=== PATIENT | female | born 1935 | race Caucasian/White ===

== ENCOUNTER 2016-07-02 09:25 | Emergency (ER) | payer OTHER ==
[2016-07-02] MEDS ORDERED: ASPIRIN PO STA (09:51)
[2016-07-02] MEDS ORDERED: PHENERGAN IV ONE (10:01)
[2016-07-02] MEDS ORDERED: SODIUM CHLORIDE 0.9% INJ ONE (10:01)
[2016-07-02] MEDS ORDERED: REGLAN IV ONE (10:01)
--- NOTE | 2016-07-02 10:08 | PROVIDER DOCUMENTATION ---
HPI-Syncope/Dizziness - General Chief Complaint: Near Syncope Stated Complaint: N/V/PAIN IN LFT ARM Time Seen by Provider: 07/02/16 09:44 Source: patient Allergies/Adverse Reactions: Patient Allergies Allergy/AdvReac Type Severity Reaction Status Date / Time metaxalone [From Skelaxin] Allergy Severe ANAPHYLACTI Verified 01/01/16 15:16 C codeine [Codeine] Allergy Intermediate NAUSEA AND Verified 01/01/16 15:16 VOMITING hydromorphone HCl * Allergy Intermediate NAUSEA Verified 01/01/16 15:16 [From Dilaudid] buprenorphine HCl * Allergy Unknown Verified 07/02/16 10:07 [From Buprenex] ondansetron HCl * Allergy Unknown Verified 07/02/16 10:07 [From Zofran] Home Medications: Aspirin 325 mg PO HS 08/06/15 Atorvastatin Calcium [Lipitor] 40 mg PO QHS 08/06/15 Bupropion S.r. [Wellbutrin Sr] 100 mg PO DAILY 08/06/15 Calcitriol [Rocaltrol] 0.25 mcg PO DIRECTED 08/06/15 Cholecalciferol (Vitamin D3) [Vitamin D-3] 1,000 unit PO DAILY 08/06/15 Esomeprazole [Nexium] 40 mg PO DAILY 08/06/15 Lamotrigine [Lamictal] 100 mg PO BID 08/06/15 Metoprolol Succinate 25 mg PO DAILY 08/06/15 [place]-3 Acid Ethyl Esters [Lovaza] 2 gm PO BID 08/06/15 Paroxetine HCl [Paxil] 40 mg PO DAILY 08/06/15 Phenytoin Sodium Extended [Dilantin] 400 mg PO 4XDAY 08/06/15 Donepezil [Aricept] 10 mg PO DAILY 07/02/16 Doxycycline 100 mg PO BID 07/02/16 Fenofibrate Nanocrystallized [Tricor] 145 mg PO DAILY 07/02/16 - History of Present Illness-Syncope/Dizzy Nature of Presenting Problem: patient is a 80 y/o F that presents to the ER after having near syncopal episode this am while using restroom. patient reports having a cold for past few days as well as left arm pain. patient during episode had some nausea\\ vomiting and diaphoresis. Denies chest pain, shortness of breath, or palpitations Prior Episodes: reports: single episode today Onset/Duration: reports: abrupt, this morning Timing: reports: gone now Position/Activity at time of episode: reports: activity Symptoms prior to episode: reports: lightheaded, nausea/vomiting Context: reports: almost passed out Loss of Consciousness: no loss of consciousness Location of injury. (If syncope resulted in an injury.): reports: none Current Symptoms: reports: none/feels normal Recently Seen Here or By Another Healthcare Provider: No Review of Systems - Adult - REVIEW OF SYSTEMS - ADULT Constitutional: denies: chills, fever Eyes: reports: no symptoms reported Ears, Nose, Mouth & Throat: reports: no symptoms reported Cardiovascular: reports: syncope (near). denies: chest pain, palpitations Respiratory: denies: cough, shortness of breath Gastrointestinal: reports: nausea, vomiting. denies: abdominal pain, diarrhea Genitourinary: reports: no symptoms reported Musculoskeletal: reports: bone pain. denies: joint pain, neck pain Integumentary: reports: no symptoms reported Neurological: reports: dizziness/vertigo, syncope (near) Psychiatric: reports: no symptoms reported Endocrine: reports: no symptoms reported Hematologic/Lymphatic: reports: no symptoms reported Allergic/Immunologic: reports: no symptoms reported All Other Systems: Reviewed and Negative Past History - Adult - PAST MEDICAL HISTORY-ADULT Review of Records: reports: Old Records Reviewed, Nursing Assessment Review, Medications Reviewed Cardiovascular: reports: CAD, HTN, MA Obstetrical/Gynecological: reports: other (breast ca) Neurological: reports: Seizures/Epilepsy - PRIOR SURGERIES/PROCEDURES Surgical/Procedure History: reports: CABG (Apr 2015), cholecystectomy, cardiac stent, hysterectomy - IMMUNIZATION STATUS Childhood Immunizations: See Nurse Assessment Flu Vaccine: See Nurse Assessment - SOCIAL HISTORY Smoking: non-smoker Living Situation: family Physical Exam-General - PHYSICAL EXAM-ADULT Initial Vital Signs Reviewed: Yes - CONSTITUTIONAL General Appearance: alert, no apparent distress - EYES Eyes: PERRL/EOMI, pink conjunctivae - HEAD, EARS, NOSE, MOUTH & THROAT HENMT: normocephalic/atraumatic, moist mucous membranes, normal ENT inspection - NECK Neck: non-tender, full range of motion, normal inspection - RESPIRATORY Respiratory: lungs clear, normal breath sounds, no respiratory distress, no accessory muscle use - CARDIOVASCULAR Cardiovascular: normal peripheral pulses, regular rate, rhythm, no edema, no JVD , no murmur - GASTROINTESTINAL (ABDOMEN) Abdominal Exam: normal bowel sounds, non tender, soft, no organomegaly, no pulsatile mass - MUSCULOSKELETAL Back Exam: normal inspection, no vertebral tenderness Extremity: normal range of motion, normal inspection, no pedal edema - SKIN Integumentary: normal color, warm/dry - NEUROLOGIC Neurologic: grossly normal, no motor/sensory deficits - PSYCHIATRIC Psych/Mental Status: normal mood/affect, normal thought content, normal thought process, oriented x 3 Progress - PLAN OF CARE/RESULTS Progress/Plan/Lab Results: plan of care-cardiac work up Vital Signs Temp Pulse Resp BP Pulse Ox 07/02/16 09:35 97.5 F L 66 16 168/72 97 metaxalone [From Skelaxin] Allergy (Severe, Verified 01/01/16 15:16) ANAPHYLACTIC codeine [Codeine] Allergy (Intermediate, Verified 01/01/16 15:16) NAUSEA AND VOMITING hydromorphone HCl * [From Dilaudid] Allergy (Intermediate, Verified 01/01/16 15: 16) NAUSEA "MAKES ME SICK" buprenorphine HCl * [From Buprenex] Allergy (Verified 07/02/16 10:07) Unknown patient reports "it causes cramps and makes me almost pass out." ondansetron HCl * [From Zofran] Allergy (Verified 07/02/16 10:07) Unknown Patient reports cramps and "makes me almost pass out." Aspirin 325 mg PO HS 08/06/15 Atorvastatin Calcium [Lipitor] 40 mg PO QHS 08/06/15 Bupropion S.r. [Wellbutrin Sr] 100 mg PO DAILY 08/06/15 Calcitriol [Rocaltrol] 0.25 mcg PO DIRECTED 08/06/15 Cholecalciferol (Vitamin D3) [Vitamin D-3] 1,000 unit PO DAILY 08/06/15 Esomeprazole [Nexium] 40 mg PO DAILY 08/06/15 Lamotrigine [Lamictal] 100 mg PO BID 08/06/15 Metoprolol Succinate 25 mg PO DAILY 08/06/15 [place]-3 Acid Ethyl Esters [Lovaza] 2 gm PO BID 08/06/15 Paroxetine HCl [Paxil] 40 mg PO DAILY 08/06/15 Phenytoin Sodium Extended [Dilantin] 400 mg PO 4XDAY 08/06/15 Donepezil [Aricept] 10 mg PO DAILY 07/02/16 Doxycycline 100 mg PO BID 07/02/16 Fenofibrate Nanocrystallized [Tricor] 145 mg PO DAILY 07/02/16 Laboratory 07/02/16 07/02/16 07/02/16 10:00 10:00 10:00 WBC 5.22 RBC 4.02 L Hgb 13.2 Hct 37.5 MCV 93.3 MCH 32.8 H MCHC 35.2 RDW Std Deviation 12.5 Plt Count 172 MPV 10.3 Immature Gran % (Auto) 0.4 Neut % (Auto) 52.1 Lymph % (Auto) 33.5 Reynolds % (Auto) 9.4 H Eos % (Auto) 4.4 Baso % (Auto) 0.2 Immature Gran # (Auto) 0.02 Neut # (Auto) 2.72 Lymph # (Auto) 1.75 Reynolds # (Auto) 0.49 Eos # (Auto) 0.23 Baso # (Auto) 0.01 PT 11.1 INR 1.05 PTT (Actin FS) 22.5 Sodium 139 Potassium 4.0 Chloride 101 Carbon Dioxide 23 L Anion Gap 15 BUN 26 H Creatinine 0.8 Estimated GFR/1.73 m2 > 60 BUN/Creatinine Ratio 33 Glucose 112 H Calculated Osmolality 283 Calcium 11.0 H Magnesium 1.4 L Total Bilirubin 0.32 AST 20 ALT 16 Alkaline Phosphatase 81 Creatine Kinase 57 Total Protein 7.4 Albumin 4.1 Globulin 3.3 Albumin/Globulin Ratio 1.2 Orders Category Date Time Status Cardiac Monitoring DIRECTED Care 07/02/16 09:51 Active Saline Loc NOW Care 07/02/16 09:51 Active CHEST-PORTABLE [RAD] Stat Exams 07/02/16 09:52 Draft CBC WITH ELECTRONIC DIFF [HEME] Stat Lab 07/02/16 10:00 Completed CK PROFILE [SP CHEM] Stat Lab 07/02/16 10:00 Completed COMPREHENSIVE METABOLIC PANEL [CHEM] Stat Lab 07/02/16 10:00 Completed MAGNESIUM [CHEM] Stat Lab 07/02/16 10:00 Completed PRO B-NATRIURETIC PEPTIDE Stat Lab 07/02/16 10:00 Received PROTIME WITH INR [COAG] Stat Lab 07/02/16 10:00 Completed PTT [COAG] Stat Lab 07/02/16 10:00 Completed TROPONIN T Stat Lab 07/02/16 10:00 Received Aspirin Med 07/02/16 09:51 Discontinued 325 mg PO STAT STA Metoclopramide [Reglan] Med 07/02/16 10:01 Discontinued 5 mg IV NOW ONE Promethazine [Phenergan] Med 07/02/16 10:01 Discontinued 12.5 mg IV NOW ONE Sodium Chloride 0.9% Med 07/02/16 10:01 Discontinued 10 ml INJ NOW ONE EKG [EKG] Stat Ther 07/02/16 09:28 Ordered EKG [EKG] Stat Ther 07/02/16 09:51 Ordered patient will be d/c home f/u with pcp, rx given, pt was clinically stable and understood instructions - EKG 1 Time of EKG reading by physician:: 09:40 EKG Read and Signed by:: Martha Martines EKG Interpretation (*Must complete 3 of following elements*): Abnormal Rate: 66 Rhythm: Sinus rhythm with PACs [place]: normal QRS: normal ST Wave: non-specific ST changes - XRAY 1 XRAY Study: Chest Impression: Abnormal XRAY Interpretation: stable chest, heart upper limits of nml Departure - Departure Time of Disposition Order: 11:03 DIAGNOSIS: Near syncope Nausea & vomiting Qualifiers: Vomiting type: unspecified Vomiting Intractability: non-intractable Qualified Code(s): R11.2 - Nausea with vomiting, unspecified Disposition: HOME 01 Certified Medical Emergency: Emergent Condition: Stable Additional Instructions: follow up with ED Follow Up Instructions: You have been treated by a care provider in the Emergency Department. These instructions are being provided to you so you can have an understanding of how to care for yourself upon discharge. Upon discharge from the Emergency Department, you are responsible for making arrangements for follow-up care by a physician of your choice. Take all prescribed medications as directed. Return to the Emergency Department immediately for any new or worsening symptoms. You may call the Physician Referral phone number at [phone] to obtain a list of Physicians who are taking new patients. Referrals: Ethan Salinas MD [Primary Care Provider] - Call for Appoint. 1-2days Instructions: Near-Syncope, [id number], Nausea, Adult, Nausea and Vomiting Attestation - Scribe Verification/Attestation Scribe:: Moncho Chin Acting as Scribe for:: Martha Martines Scribe documention review:: This chart was documented by a scribe and accurately reflects the service the provider performed and the decisions made by the provider. Physician Attestation - Physician Attestation I, the provider, attest to the following statement:: Martha Martines Physician documentation Attestation:: This documentation recorded by the scribe accurately reflects the service I personally performed and the decisions made by me.
[2016-07-02 10:16] LABS: MANUAL DIFF NEEDED? NO
[2016-07-02 10:20] LABS: BASO% 0.2 % (0.0-0.8); EOS# 0.23 X1000 (0.0-0.7); EOS% 4.4 % (0.0-10.0); HEMATOCRIT 37.5 % (37.0-47.0); HEMOGLOBIN 13.2 g/dL (12.0-16.0); IMM GRAN# 0.02 X1000 (0.0-0.04); IMM GRAN% 0.4 % (0.0-0.5); LYMPH# 1.75 X1000 (1.2-3.4); LYMPH% 33.5 % (20.5-51.1); MCH 32.8 PG (27-31); MCHC 35.2 g/dL (33-37); MCV 93.3 FL (81-99); MONO# 0.49 X1000 (0.11-0.59); MONO% 9.4 % (1.7-9.3); MPV 10.3 FL (7.4-10.4); NEUT% 52.1 % (42.2-75.2); PLT 172 X1000 (130-400); RBC 4.02 XMIL (4.2-5.4)
[2016-07-02 10:30] LABS: INR 1.05; PROTIME 11.1 Seconds (9.2-11.7); PTT 22.5 Seconds (22.0-36.0)
[2016-07-02 10:49] LABS: AGAP 15; ALBUMIN 4.1 g/dL (3.5-5.0); ALKALINE PHOSPHATASE 81 U/L (32-104); BUN 26 mg/dL (8-22); CHLORIDE 101 mmol/L (98-107); CK PROFILE 57 U/L (24-173); COSMO 283; GOT 20 U/L (10-30); GPT 16 U/L (10-36); MAGNESIUM 1.4 mg/dL (1.5-2.7); SODIUM 139 mmol/L (136-145); TCO2 23 mmol/L (25-35); TOTAL BILIRUBIN 0.32 mg/dL (0.20-1.00); TOTAL PROTEIN 7.4 g/dL (6.3-8.3)
--- NOTE | 2016-07-02 10:58 | Diag Imaging Result Document ---
PROCEDURE NAME: CHEST-PORTABLE - 07/02/2016 PORTABLE CHEST: FINDINGS: The heart size is at the upper limits of normal. It appears larger than on 08/06/2015; however, this is probably due to AP projection. Otherwise, there has been no significant change. IMPRESSION: Stable chest.
[2016-07-02 11:18] VITALS: BP 146/76
--- NOTE | 2016-07-02 11:39 | EKG Report ---
Test Performed on : 07/02/2016 09:34:22 AM Test Reason : left arm pain, hx of CABG Blood Pressure : / mmHG Vent. Rate : 066 BPM Atrial Rate : 066 BPM P-R Int : 200 ms QRS Dur : 094 ms QT Int : 390 ms P-R-T Axes : 071 029 084 degrees QTc Int : 408 ms Sinus rhythm. with premature atrial complexes. Cannot rule out Anterior infarct (cited on or before 02-JUL-2016) Abnormal ECG When compared with ECG of 02-JUL-2016 09:33, (Unconfirmed) QRS axis shifted left Unconfirmed Result
== END 2016-07-02 11:34 | disposition home or self-care (01) ==
LOC: ED 09:25
DX: R55 Syncope and collapse (principal); R11.2 Nausea with vomiting, unspecified; R42 Dizziness and giddiness; I25.10 Atherosclerotic heart disease of native coronary artery without angina pectoris; I10 Essential (primary) hypertension; R94.31 Abnormal electrocardiogram [ECG] [EKG]; I25.2 Old myocardial infarction; Z79.899 Other long term (current) drug therapy; Z85.3 Personal history of malignant neoplasm of breast; M89.8X9 Other specified disorders of bone, unspecified site; R56.9 Unspecified convulsions; Z95.1 Presence of aortocoronary bypass graft; Z95.5 Presence of coronary angioplasty implant and graft; Z79.82 Long term (current) use of aspirin
CPT/HCPCS: 71010; 80053; 82550; 83735; 83880; 84484; 85025; 85610; 85730; 93005; 96374; 96375; J2550; J2765

== ENCOUNTER 2017-01-10 13:26 | Inpatient (IN) ==
[2017-01-10] MEDS ORDERED: ZITHROMAX PO ONE (14:45)
--- NOTE | 2017-01-10 15:09 | Diag Imaging Result Doc PS360 ---
EXAM: CHEST-2 VIEWS HISTORY: Acute Bronchitis TECHNIQUE: PA and lateral chest COMMENT: There is cardiomegaly. There is prominence of the pulmonary vascularity bilaterally and there is a pleural effusion in the right costophrenic sulcus which was not present on 07/02/2016. There is questionable interstitial edema. IMPRESSION: Increased pulmonary vascularity and questionable pulmonary edema. Small right pleural effusion. Electronically signed by Olman Martinez 01/10/2017 3:07 PM
[2017-01-10] MEDS: ROCEPHIN 1 GM/NS 1 GM/50 ML IVPB IV SCH (15:16)
[2017-01-10 15:20] LABS: MANUAL DIFF NEEDED? NO
[2017-01-10 15:21] LABS: BASO% 0.3 % (0.0-0.8); EOS% 2.5 % (0.0-10.0); HEMATOCRIT 37.2 % (37.0-47.0); HEMOGLOBIN 12.9 g/dL (12.0-16.0); IMM GRAN# 0.02 X1000 (0.0-0.04); IMM GRAN% 0.3 % (0.0-0.5); LYMPH# 1.88 X1000 (1.2-3.4); LYMPH% 23.6 % (20.5-51.1); MCH 33.1 PG (27-31); MCHC 34.7 g/dL (33-37); MCV 95.4 FL (81-99); MONO# 0.77 X1000 (0.11-0.59); MONO% 9.7 % (1.7-9.3); MPV 10.6 FL (7.4-10.4); NEUT% 63.6 % (42.2-75.2); PLT 185 X1000 (130-400)
[2017-01-10] MEDS ORDERED: PHENERGAN PO PRN (15:44)
[2017-01-10 15:53] LABS: AGAP 13; ALBUMIN 4.3 g/dL (3.5-5.0); ALKALINE PHOSPHATASE 82 U/L (32-104); BUN 27 mg/dL (8-22); CALCIUM 10.5 mg/dL (8.8-10.2); CHLORIDE 101 mmol/L (98-107); COSMO 282; GOT 33 U/L (10-30); GPT 26 U/L (10-36); POTASSIUM 4.2 mmol/L (3.5-5.1); SODIUM 139 mmol/L (136-145); TCO2 25 mmol/L (25-35); TOTAL BILIRUBIN 0.57 mg/dL (0.20-1.00); TOTAL PROTEIN 7.5 g/dL (6.3-8.3)
[2017-01-10 16:06] LABS: URINE SOURCE CLEAN CATCH
[2017-01-10 16:10] LABS: BILIRUBIN URINE NEGATIVE (NEGATIVE); BLOOD URINE SMALL (NEGATIVE); COLOR YELLOW; GLUCOSE URINE NEGATIVE (NEGATIVE); LEUKOCYTES URINE SMALL (NEGATIVE); NITRITE URINE NEGATIVE (NEGATIVE); PROTEIN URINE TRACE mg/dL (NEGATIVE); SP GRAVITY URINE 1.023; TURBIDITY URINE HAZY (CLEAR); UROBILINOGEN URINE 3 mg/dL (NORMAL)
[2017-01-10 16:12] LABS: URINE MICRO REVIEW NEEDED? YES
[2017-01-10 16:13] LABS: UR EPITHELIAL CELLS <10 /HPF (<10); URINE BACTERIA 2+ /HPF; URINE CULTURE NEEDED? YES; URINE RBC 20-40 /HPF (<10); URINE WBC <10 /HPF (<10)
[2017-01-10 16:25] LABS: BLOOD TYPE ARTERIAL; DRAW SITE R RADIAL; METHB 0.5 % (0.0-1.5); O2(CT) 18.5 mL/dL (15.0-23.0); PCO2(98.6) 38 mmHg (35-45); PO2(98.6) 68 mmHg (60-100); SAMPLE BLOOD; SAO2 95.1 % (95.0-100.0); THB 14.1 g/dL (11.5-17.4); pH(98.6) 7.43 (7.35-7.45)
[2017-01-10] MEDS ORDERED: LOPRESSOR PO ONE (16:26)
[2017-01-10 16:27] LABS: ALLEN TEST YES; MODALITY ROOM AIR
[2017-01-10] MEDS ORDERED: LASIX IV ONE (19:18)
[2017-01-10] MEDS: LIPITOR PO SCH (20:20)
[2017-01-10] MEDS: LOVAZA PO SCH (20:20)
[2017-01-10] MEDS: SYMBICORT 160/4.5 MICROGM INHALER INH SCH (20:23)
[2017-01-11] MEDS: PRILOSEC PO SCH (06:27)
--- NOTE | 2017-01-11 07:02 | EKG Report ---
Test Performed on : 01/10/2017 3:56:06 PM Test Reason : Acute Bronchitis Blood Pressure : / mmHG Vent. Rate : 117 BPM Atrial Rate : 234 BPM P-R Int : 000 ms QRS Dur : 094 ms QT Int : 320 ms P-R-T Axes : 000 057 097 degrees QTc Int : 446 ms Atrial flutter. with variable AV block. Anterior infarct (cited on or before 02-JUL-2016) Abnormal ECG When compared with ECG of 02-JUL-2016 09:34, Atrial flutter. has replaced Sinus rhythm. Vent. rate has increased BY [address] no longer elevated in Inferior leads T wave inversion no longer evident in Lateral leads Confirmed by Deborah Shelton MD ([id number]) on 01/11/2017 1:09:48 PM
[2017-01-11] MEDS: ROBITUSSIN-DM PO PRN (08:03)
[2017-01-11] MEDS: TRICOR PO SCH (08:30)
[2017-01-11] MEDS: WELLBUTRIN SR PO SCH (08:30)
[2017-01-11] MEDS: LOVAZA PO SCH ×2 (08:30→21:16)
[2017-01-11] MEDS: ASPIRIN PO SCH (08:30)
[2017-01-11] MEDS: PAXIL PO SCH (08:31)
[2017-01-11] MEDS: ZITHROMAX PO SCH (08:31)
[2017-01-11] MEDS: VITAMIN D PO SCH (08:31)
[2017-01-11] MEDS: LAMICTAL PO SCH (08:31)
[2017-01-11] MEDS ORDERED: TOPROL XL PO SCH (09:00)
--- NOTE | 2017-01-11 11:53 | HISTORY AND PHYSICAL ---
CHIEF COMPLAINT: Shortness of breath and cough. HISTORY OF PRESENT ILLNESS: A 81-year-old female patient complaining of chest congestion, cough, scanty sputum production, wheezing, shortness of breath. The patient was sick for a few days. I evaluated patient 2 days ago, started her on antibiotics, steroid. Patient was taking medication. She was not feeling any better. The patient was getting sicker, more cough, more shortness of breath. The patient came back for evaluation. I evaluated the patient and decided to admit her for further care as patient was not responding to outpatient treatment. The patient did have some low-grade fever, chills, she was not able to rest well. She had soreness when she coughed. She denied any hemoptysis. The patient claims she coughed significantly until she threw up once. The patient had some runny nose, stuffy nose, postnasal drip. Complaining of symptoms of stress urinary incontinence. No dysuria or hematuria. Vague abdominal pain. No diarrhea, blood or mucus in the stool. The patient was feeling weak, tired and no energy. At times, pain in the lower back. No focal numbness, tingling, weakness. No further history available at this time. ALLERGIES: Metolazone, trazodone, codeine, hydromorphone. PAST MEDICAL HISTORY: Significant for hyperlipidemia, situational depression, seizure disorder, hypertension, gastritis, reflux disease, situational depression, osteoarthritis, hypercalcemia. PERSONAL HISTORY: Single. Lives at home. Fairly independent in activities of daily living. The patient does have problem with recent memory. FAMILY HISTORY: Significant for sister with breast cancer, hypertension. REVIEW OF SYSTEMS: As per HPI. PHYSICAL EXAMINATION: GENERAL: Elderly white female patient in mild distress. VITAL SIGNS: On admission blood pressure 154/106, pulse 120, respiration 22, temperature 98.2 degrees. SKIN: Senile turgor. No rash or petechiae. HEENT: Head atraumatic, normocephalic. [place] conjunctivae. Anicteric sclerae. Extraocular muscle movement normal. Fundus, sharp discs. Ears and nose benign. NECK: Supple. No JVD, thyromegaly or lymphadenopathy. CHEST: Bilateral good air entry present. Bibasilar crepitation. Occasional wheezing. CARDIOVASCULAR: S1 and S2 heard. No gallop or thrill. ABDOMEN: Soft, globular, bowel sounds present. Mild epigastric tenderness. No guarding or rigidity. EXTREMITIES: No cyanosis, clubbing. No acute DVT. BIOLOGY INTERN: Alert, awake, able to move all 4 limbs. LABORATORY DATA: WBC count 7.95, hemoglobin 12.9, hematocrit 37.2, platelet count 185,000. Blood gas, pH 7.43, pCO2 38, PO2 was 68. O2 saturation was 95.1. This was done on room air. Electrolytes: Calcium 10.5, ProBNP was 2887. Urinalysis: 2+ bacteria. DIAGNOSTICS: Chest x-ray did reveal possible pulmonary edema and pulmonary vascular congestion. EKG results reviewed. CONSIDERATION: 1. Acute asthmatic bronchitis, not responding to outpatient treatment. 2. Pulmonary vascular congestion and pulmonary edema. 3. The patient does have seizure disorder, hypertension, gastritis and reflux disease, osteoarthritis, depression, mild cognitive impairment. PLAN: Admit the patient. IV antibiotics. Oxygen. Telemetry monitoring. I will give her some Lasix. Her EKG reviewed. We will get a Cardiology consult. I am going to get echocardiogram. Fall precaution. Overall plan discussed with the patient. She is in agreement. cc: Ethan Salinas MD
[2017-01-11] MEDS ORDERED: LOVENOX SUBQ SCH (12:30)
[2017-01-11] MEDS: LASIX IV SCH (12:35)
--- NOTE | 2017-01-11 12:49 | CONSULTATION ---
DATE OF CONSULTATION: 01/11/2017 HISTORY OF PRESENT ILLNESS: This 81-year-old lady with known coronary artery disease, status post coronary artery bypass grafting, hypertension, sleep apnea, and seizure disorder in the past, comes with complaints of increasing episodes of shortness of breath associated with cough for the last 3 weeks. Initially, symptoms started as shortness of breath, which progressively worsened. This was dyspnea on exertion and started having cough, as well. She describes the cough as a dry cough initially, with subsequently mucoid expectoration associated with chest pain on coughing. Her shortness of breath worsened significantly with the worsening of cough, and she came in and she was admitted. She denies chest pain suggestive of angina; however, with coughing, she has had significant left-sided chest discomfort. She does not perceive any palpitations. There is no history of fevers or chills. REVIEW OF SYSTEMS: A 14-point review of systems was done.Gastrointestinal: There is no history of nausea, vomiting, diarrhea. There is no history of hematemesis or melena. Central nervous system: No focal weakness to suggest a CVA or TIA. Genitourinary: There is no dysuria or hematuria. Respiratory: As above. Endocrine: Stable. PAST MEDICAL HISTORY: 1. Coronary artery disease, status post coronary artery bypass grafting on 05/17/2015 with saphenous vein graft to OM, saphenous vein graft to ramus, MERAZ to left anterior descending artery. Prior to that, on 05/04/2004, she had PTCA and bare metal stent to left anterior descending artery. In April 2009, she had a drug-eluting stent to distal left anterior descending artery. In 2010, she had a drug-eluting stent to the proximal circumflex artery, PTCA to distal LAD stent. At that time, ejection fraction was 45% to 50%. On 12/12/2012, she had a cardiac catheterization which revealed patent stent. Subsequently, on 05/10/2015, she had again a cardiac catheterization resulting in recommendation for and undergoing coronary artery bypass grafting. 2. Bilateral carotid disease. Minimal. 3. Hypertension. 4. Hyperlipidemia. 5. Sleep apnea. 6. Carcinoma in situ of breast, status post lumpectomy and radiation in the past. 7. Seizure disorder. 8. Gastroesophageal reflux disease. ALLERGIES: She is allergic to metaxalone, codeine, hydromorphone, buprenorphine. HOME MEDICATIONS: Aspirin 325 mg. Atorvastatin 40. She is on Zithromax currently and Symbicort. She has also been started on ceftriaxone. Her other home medications include fenofibrate 145 mg a day, lamotrigine 400 mg daily, she has been started on metoprolol, omeprazole, Paxil, and takes Lovaza. SOCIAL HISTORY: She does not smoke. Does not drink. There is no history of alcohol abuse. PHYSICAL EXAMINATION: Vital Signs: Blood pressure was 128/84. Cardiovascular: Normal jugular venous pressure. First and second heart sounds were heard. There was no S3 gallop. There was faint murmur. Respiratory: Bilateral expiratory wheeze. Abdomen: Soft, nontender. There was no guarding or rigidity. Bowel sounds were heard. Central nervous system: Alert and oriented x3. Was moving all 4 extremities. Extremities: Examination of extremities revealed trace edema. HEENT: Atraumatic, normocephalic. Pupils were equal and reacting to light. LABORATORY AND IMAGING: Revealed a sodium 139, potassium 4.2, BUN 27, creatinine 0.8. proBNP was elevated at 2887. Chest x-ray suggestive of pulmonary venous congestion with pleural effusion. Hematology: WBC 7.95, hemoglobin 12.9, and platelet count of 185,000. Electrocardiogram revealed atrial fibrillation, rate of 110 beats per minute, nonspecific ST-T changes. Urine examination revealed no significant ketones or white count. ASSESSMENT AND PLAN: Ms. Joanne Dial is a 81-year-old lady who has known coronary artery disease with multiple stent placements in the past, status post coronary artery bypass grafting on 05/17/2015, minimal carotid disease, hypertension, hyperlipidemia, and sleep apnea, who was admitted with having increasing shortness of breath for the last 3 weeks associated with significant worsening of cough. She has mucoid expectoration. Chest x-ray is suggestive of mild heart failure with elevated proBNP. 1. Given her symptoms of cough and a of worsening shortness of breath, she has been started on antibiotics. Would recommend continuing the antibiotics. 2. She has extensive coronary artery disease and this could be heart failure she has with elevated proBNP. We will get an echocardiogram to reassess cardiac and valvular function. We will rule out myocardial infarction by serial cardiac enzymes. 3. Her rate is 100 to 110 beats per minute. We will increase her Toprol to 25 mg twice daily. 4. She is noted to be in atrial fibrillation. This is the first time she has had atrial fibrillation. On looking through our records, she has not had atrial fibrillation in the past. Given this, we have put her on Lovenox 1 mg/kg twice daily. 5. Depending on the further outcome, we may plan for a PAT cardioversion on Saturday; however, we will have blood work drawn for ruling out myocardial infarction by cardiac enzymes, in addition to evaluate for thyroid disease, as well. As far as her symptomatology is concerned, it probably is related to heart failure. May well have bronchitis features, as well. We will follow hospital course. We will get chest x-rays, PA and lateral, in the morning. I had a detailed discussion with the patient. She understands the plan of action. cc: MD Ethan Seth MD
--- NOTE | 2017-01-11 14:01 | PROGRESS NOTE ---
DATE: 01/11/2017 SUBJECTIVELY: Ms. Dial is feeling some better. She still has cough, mild chest congestion. No high-grade fever or chills. Complaining of feeling weak. No nausea or vomiting. Denied abdominal pain. Complaining of some leg cramps. Patient admitted with acute bronchitis. EKG did reveal atrial flutter. Waiting for stopperer assembler evaluation. She does have history of seizure. Breast cancer. OBJECTIVE: Vital Signs: Noted. Neck: Supple. No JVD. Lungs: Bilateral good air entry present. Occasional wheezing. CVS: S1 and S2 heard. Abdomen: Soft, globular. Bowel sounds present. TRACKWALKER: Alert, awake. Able to move all 4 limbs. No acute DVT clinically. CONSIDERATION: Acute bronchitis. Chest x-ray did reveal mild congestive heart failure. Echocardiogram done. Waiting for the results. Electrocardiogram did reveal atrial flutter. I am going to get stopperer assembler evaluation. We will repeat electrocardiogram today. Heart rate this morning was 47. Other problems include osteoarthritis, seizure disorder, leg cramps. Overall plan discussed with the patient and she is in agreement. cc: Ethan Salinas MD
[2017-01-11] MEDS: ROCEPHIN 1 GM/NS 1 GM/50 ML IVPB IV SCH (14:17)
[2017-01-11] MEDS ORDERED: DULCOLAX PR ONE (14:22)
[2017-01-11] MEDS ORDERED: ATIVAN IV PRN (14:23)
[2017-01-11] MEDS ORDERED: NITROGLYCERIN SL PRN (14:27)
[2017-01-11] MEDS: LOVENOX SUBQ SCH (14:42)
--- NOTE | 2017-01-11 14:53 | EKG Report ---
Test Performed on : 01/11/2017 2:36:16 PM Test Reason : chest pain Blood Pressure : / mmHG Vent. Rate : 101 BPM Atrial Rate : 220 BPM P-R Int : 000 ms QRS Dur : 092 ms QT Int : 370 ms P-R-T Axes : 046 023 079 degrees QTc Int : 479 ms Atrial flutter. with variable AV block. Cannot rule out Anterior infarct (cited on or before 02-JUL-2016) Abnormal ECG When compared with ECG of 10-JAN-2017 15:56, Non-specific change in ST segment in Inferior leads ST no longer depressed in Lateral leads Confirmed by Nikita SPRINGER, Deborah Woods ([id number]) on 01/13/2017 9:14:26 AM
[2017-01-11] MEDS: SYMBICORT 160/4.5 MICROGM INHALER INH SCH (19:25)
--- NOTE | 2017-01-11 19:32 | ECHO REPORT ---
ORDER DATE: 01/10/2017 ECHOCARDIOGRAM: MEASUREMENTS: Left ventricular end-diastolic diameter 5.1, end systolic diameter 3.4, septal thickness 1.1, posterior wall thickness 0.9, left atrium 4.1, aortic root 3.7. SUMMARY: 1. Technically difficult study due to limited acoustic window quality. 2. Aortic valve is trileaflet and opens normally on 2-dimensional images. There is mild aortic regurgitation. Mitral, tricuspid, and pulmonic valves are without structural abnormality with mild mitral regurgitation. Mild tricuspid regurgitation, and mild pulmonic insufficiency. The estimated systolic PA pressure by Doppler is approximately 30-35 mmHg. Aortic root is normal in size. 3. Normal left ventricular dimensions suggested. Estimated left ventricular ejection fraction is approximately 50%. Intravenous echo contrast agent Definity was utilized to enhance endocardial definition for purposes of assessment of left ventricular systolic function and wall motion. There is akinesis of the very apical septum and very apex left ventricle. There is also severe hypokinesis of the mid inferolateral wall. There is moderate to severe hypokinesis of the apical lateral wall. The left atrium is mildly enlarged. Right atrium and right ventricle are normal size with normal right ventricular systolic function. 4. No pericardial effusion. 5. Appearance of inferior vena cava suggests normal central venous pressure. CONCLUSIONS: 1. Technically difficult study. 2. Very mild aortic regurgitation and mild mitral regurgitation. 3. Mild tricuspid regurgitation with mild pulmonary hypertension by Doppler. 4. Estimated left ventricular ejection fraction approximately 50% with wall motion abnormalities as described suggesting underlying ischemic heart disease. 5. Mild left atrial enlargement. cc: MD Ethan Gillette MD
[2017-01-11] MEDS: LIPITOR PO SCH (21:16)
[2017-01-11] MEDS: TOPROL XL PO SCH (21:16)
[2017-01-12] MEDS: ROBITUSSIN-DM PO PRN (00:55)
[2017-01-12] MEDS: LOVENOX SUBQ SCH ×2 (04:30→14:10)
[2017-01-12 05:01] LABS: MANUAL DIFF NEEDED? NO
[2017-01-12 05:06] LABS: BASO% 0.1 % (0.0-0.8); EOS# 0.31 X1000 (0.0-0.7); EOS% 4.5 % (0.0-10.0); HEMATOCRIT 36.9 % (37.0-47.0); HEMOGLOBIN 13.2 g/dL (12.0-16.0); LYMPH# 2.26 X1000 (1.2-3.4); LYMPH% 32.6 % (20.5-51.1); MCH 33.6 PG (27-31); MCHC 35.8 g/dL (33-37); MCV 93.9 FL (81-99); MONO# 0.72 X1000 (0.11-0.59); MONO% 10.4 % (1.7-9.3); MPV 10.7 FL (7.4-10.4); NEUT% 52.4 % (42.2-75.2); PLT 183 X1000 (130-400); RBC 3.93 XMIL (4.2-5.4)
[2017-01-12 05:30] LABS: ALBUMIN 4.1 g/dL (3.5-5.0); CALCIUM 11.4 mg/dL (8.8-10.2); MAGNESIUM 1.7 mg/dL (1.5-2.7); POTASSIUM 3.7 mmol/L (3.5-5.1); TOTAL BILIRUBIN 0.42 mg/dL (0.20-1.00); TOTAL PROTEIN 7.4 g/dL (6.3-8.3)
[2017-01-12] MEDS: SYMBICORT 160/4.5 MICROGM INHALER INH SCH ×2 (07:54→19:49)
[2017-01-12] MEDS: PAXIL PO SCH (08:41)
[2017-01-12] MEDS: ASPIRIN PO SCH (08:41)
[2017-01-12] MEDS: ZITHROMAX PO SCH (08:41)
[2017-01-12] MEDS: LOVAZA PO SCH ×2 (08:41→21:55)
[2017-01-12] MEDS: TOPROL XL PO SCH ×2 (08:42→21:55)
[2017-01-12] MEDS: LASIX IV SCH (08:42)
[2017-01-12] MEDS: LAMICTAL PO SCH (08:42)
[2017-01-12] MEDS: TRICOR PO SCH (08:42)
[2017-01-12] MEDS: VITAMIN D PO SCH (08:42)
[2017-01-12] MEDS: WELLBUTRIN SR PO SCH (08:42)
[2017-01-12] MEDS: PRILOSEC PO SCH (08:43)
--- NOTE | 2017-01-12 09:33 | Diag Imaging Result Doc PS360 ---
CHEST-2 VIEWS - 01/12/2017 INDICATION: dyspnea TECHNIQUE: COMPARISON: 01/10/2017 FINDINGS: Stable CABG changes. Heart size is top normal. Pulmonary vascularity is normal. No focal infiltrates, pneumothorax, or pleural effusion. IMPRESSION: No acute disease. Electronically signed by Robbin Quintero 01/12/2017 9:31 AM
[2017-01-12] MEDS ORDERED: NS NEB INH SCH (10:30)
--- NOTE | 2017-01-12 13:02 | PROGRESS NOTE ---
DATE: 01/12/2017 SUBJECTIVE: Patient still has cough, minimally productive. No other complaints. OBJECTIVE: Afebrile, pulse 112, respirations 18, blood pressure 126/64, O2 saturation on 2 L 92%- 98%. CV: Tachycardia, irregularly irregular. Lungs: Mildly coarse breath sounds. No distinct crackles or rhonchi. Abdomen nontender. Extremities: No calf tenderness, cords, or edema. Sputum: Normal shira. Urine culture: No pathogenic growth. Sodium 139, potassium 3.7, chloride 98, CO2 of 28. BUN 37, creatinine 1.1. LFTs normal. CKs normal in the 90s to 80s. Troponin is less than 0.01 x3. White count 6.9, hemoglobin 13.2, platelets 183,000. Chest x-ray: No acute disease. ASSESSMENT: 1. Cough possibly multifactorial. 2. New onset atrial fibrillation with mild rapid ventricular response. 3. Possible mild chronic heart failure. Echocardiogram reviewed from yesterday which was a technically difficult study revealing ejection fraction of 50%. Mild TR and MR and AR. Mild pulmonary hypertension. 4. Bronchitis. 5. Hyperlipidemia. 6. Depression. 7. Seizure disorder. 8. Hypertension. 9. Gastroesophageal reflux disease. 10. Osteoarthritis. 11. History of hypercalcemia. PLAN: She is on anticoagulation now per Cardiology with Lovenox at full strength. She is on higher dose metoprolol and will continue to monitor her heart rate on the new dose of metoprolol. She has been active though taking a shower this morning so that may have elevated her heart rate slightly. She is on antibiotics in the form of Zithromax and Rocephin, and we will add some Xopenex to her Symbicort to see if that may help. Continue the Lasix. She is on at 40 mg IV daily. Possible PAT 2 days from now. cc: MD Ethan Alberto MD
--- NOTE | 2017-01-12 13:08 | PROGRESS NOTE ---
DATE: 01/12/2017 SUBJECTIVE: She reports she feels fine this morning, has no heart racing. OBJECTIVE: She is afebrile, heart rates appear to be in the 90s to low 100s predominantly. Most recent blood pressure was 126/64. Her I's and O's are negative around 1500 mL with recording noted. General: No acute distress. Cardiovascular: She sounds to be in regular rate and rhythm with no murmurs. Her telemetry currently this morning is somewhat difficult to interpret. It could be a slow atrial flutter versus mild sinus tachycardia. She has no lower extremity edema. Chest exam is clear bilaterally. No increased work of breathing. Abdomen is soft, nontender. No obvious organomegaly. DIAGNOSTIC DATA: Sodium is 139, potassium 3.7, BUN is 37, creatinine 1.1. Cardiac enzymes are negative. CBC was reviewed. ASSESSMENT: New onset atrial fibrillation. PLAN: We will check an EKG tomorrow. If she continues to be in this rhythm on Saturday, I would likely proceed with cardioversion. Her cardiac enzymes have been negative thus far. She had an echocardiogram performed on 01/10/2017 demonstrating an EF of around 50% with wall motion abnormalities in the form of akinesis of the very apical septum and apex of the left ventricle. In addition, severe hypokinesis of the mid inferior lateral wall and moderate to severe hypokinesis of the apical lateral wall. cc: MD Ethan Valladares MD
[2017-01-12] MEDS: ROCEPHIN 1 GM/NS 1 GM/50 ML IVPB IV SCH (14:10)
[2017-01-12] MEDS ORDERED: MAALOX PLUS LIQUID PO PRN (14:20)
[2017-01-12] MEDS: COLACE PO PRN ×2 (14:39→21:55)
[2017-01-12] MEDS: XOPENEX NEB INH SCH ×3 (15:39→22:29)
[2017-01-12] MEDS: LIPITOR PO SCH (21:55)
[2017-01-13] MEDS: XOPENEX NEB INH SCH ×4 (03:58→22:48)
[2017-01-13] MEDS: LOVENOX SUBQ SCH ×2 (06:25→21:57)
[2017-01-13] MEDS: PRILOSEC PO SCH (06:25)
[2017-01-13] MEDS: SYMBICORT 160/4.5 MICROGM INHALER INH SCH ×2 (08:14→19:48)
[2017-01-13] MEDS: LASIX IV SCH (09:35)
[2017-01-13] MEDS: ZITHROMAX PO SCH (09:36)
[2017-01-13] MEDS: TRICOR PO SCH (09:36)
[2017-01-13] MEDS: WELLBUTRIN SR PO SCH (09:36)
[2017-01-13] MEDS: VITAMIN D PO SCH (09:36)
[2017-01-13] MEDS: ASPIRIN PO SCH (09:36)
[2017-01-13] MEDS: LOVAZA PO SCH ×2 (09:36→21:57)
[2017-01-13] MEDS: LAMICTAL PO SCH (09:36)
[2017-01-13] MEDS: PAXIL PO SCH (09:36)
[2017-01-13] MEDS: TOPROL XL PO SCH ×2 (09:37→21:56)
[2017-01-13] MEDS ORDERED: DULCOLAX PR ONE ×2 (10:45→11:30)
--- NOTE | 2017-01-13 13:39 | PROGRESS NOTE ---
DATE: 01/13/2017 SUBJECTIVE: Patient without specific complaints. OBJECTIVE: Vital signs: Afebrile, pulse upper 90s to low 100s, respirations 20, blood pressure 124/84, O2 saturation 2 L 98-99%. CV: Irregularly irregular. On telemetry there are times when she has had some brief runs of sinus rhythm. Mainly she has had atrial flutter, fibrillation. Lungs: Mild crackles right lung base. Extremities: No calf tenderness, cords or edema. Abdomen: Soft, active bowel sounds. One small bowel movement this morning. DIAGNOSTIC DATA: Chest x-ray negative yesterday. ASSESSMENT: 1. New onset atrial fibrillation. 2. Mild congestive heart failure. 3. Bronchitis, improving. 4. Hyperlipidemia. 5. Depression. 6. Seizure disorder. 7. Hypertension. 8. Gastroesophageal reflux disease. 9. Osteoarthritis. 10. History of hypercalcemia. PLAN: Patient on full anticoagulation per cardiology with Lovenox. She is on metoprolol. She remains on antibiotics Zithromax and Rocephin and she is on Xopenex and Symbicort and that seems to be helping. Also on low-dose Lasix. Patient is scheduled for cardioversion tomorrow. Will continue to follow. Will give her laxatives as needed for any constipation she may have. cc: MD Ethan Alberto MD
[2017-01-13] MEDS: ROCEPHIN 1 GM/NS 1 GM/50 ML IVPB IV SCH (14:30)
[2017-01-13] MEDS: TYLENOL PO PRN (16:16)
--- NOTE | 2017-01-13 17:11 | PROGRESS NOTE ---
DATE: 01/13/2017 SUBJECTIVE: She has been doing well overnight. She has no complaints of chest pain. No palpitations. PHYSICAL EXAMINATION: Vital Signs: She is afebrile. Heart rate is in the 90s. Blood pressure 140/92. General: No acute distress. Cardiovascular: She sounds to be in an irregularly irregular rhythm, consistent with atrial fibrillation, which is proven on her telemetry. She has no lower extremity edema. Chest: Clear bilaterally. She has no increased work of breathing. Abdomen: Soft, nontender. LABORATORY STUDIES: Pertinent laboratory data shows white count 6.9 yesterday, hematocrit of 36.9. She has no new data from today. ASSESSMENT: New onset atrial fibrillation. PLAN: Patient is already on anticoagulation. We will plan for cardioversion tomorrow. She is NPO after midnight. She is currently on Lovenox. Risks, benefits, and alternatives to the procedure have been explained, and she agrees to proceed. cc: MD Ethan Valladares MD
[2017-01-13] MEDS: MILK OF MAGNESIA PO PRN (18:27)
[2017-01-13] MEDS: LIPITOR PO SCH (21:56)
[2017-01-14] MEDS: XOPENEX NEB INH SCH ×4 (03:12→22:20)
--- NOTE | 2017-01-14 05:21 | EKG Report ---
Test Performed on : 01/13/2017 06:07:20 AM Test Reason : afib Blood Pressure : / mmHG Vent. Rate : 100 BPM Atrial Rate : 234 BPM P-R Int : 000 ms QRS Dur : 092 ms QT Int : 362 ms P-R-T Axes : 000 071 076 degrees QTc Int : 466 ms Atrial fibrillation. Anterior infarct (cited on or before 02-JUL-2016) Abnormal ECG When compared with ECG of 12-JAN-2017 06:27, (Unconfirmed) Atrial fibrillation. has replaced Atrial flutter. Confirmed by Nikita SPRINGER, MAram Woods ([id number]) on 01/14/2017 8:50:39 AM
--- NOTE | 2017-01-14 05:22 | EKG Report ---
Test Performed on : 01/12/2017 06:27:14 AM Test Reason : afib Blood Pressure : / mmHG Vent. Rate : 100 BPM Atrial Rate : 250 BPM P-R Int : 000 ms QRS Dur : 096 ms QT Int : 372 ms P-R-T Axes : 069 054 082 degrees QTc Int : 479 ms Atrial flutter. with variable AV block. Anterior infarct (cited on or before 02-JUL-2016) Abnormal ECG When compared with ECG of 11-JAN-2017 14:36, (Unconfirmed) No significant change was found Confirmed by Nikita SPRINGER MAram Woods ([id number]) on 01/14/2017 8:50:13 AM
[2017-01-14] MEDS: PRILOSEC PO SCH ×2 (06:03→06:04)
[2017-01-14 06:42] LABS: MANUAL DIFF NEEDED? NO
[2017-01-14 06:46] LABS: BASO% 0.4 % (0.0-0.8); EOS# 0.32 X1000 (0.0-0.7); EOS% 6.7 % (0.0-10.0); HEMATOCRIT 37.1 % (37.0-47.0); LYMPH# 2.13 X1000 (1.2-3.4); LYMPH% 44.6 % (20.5-51.1); MCH 33.2 PG (27-31); MCV 94.9 FL (81-99); MONO# 0.43 X1000 (0.11-0.59); MPV 10.7 FL (7.4-10.4); NEUT% 39.3 % (42.2-75.2); PLT 193 X1000 (130-400); RBC 3.91 XMIL (4.2-5.4)
--- NOTE | 2017-01-14 06:55 | PROGRESS NOTE ---
DATE: 01/14/2017 SUBJECTIVE: Subjectively, Ms. Dial is doing better. Her cough and chest congestion is less. Shortness of breath is improving. She denied any nausea or vomiting. No unusual bleeding. Her electrocardiogram reveals atrial fibrillation. The patient is scheduled to have a transesophageal echocardiogram and possible cardioversion today. The patient is in agreement. OBJECTIVE: Vital Signs: Her vital signs noted. Neck: Supple. No jugular venous distention. Lungs: Bibasilar crepitations. Occasional wheezing. Heart: S1 and S2 heard. Irregularly irregular. Abdomen: Soft, nontender. Bowel sounds present. ROUTE RELIEF DRIVER: Alert, awake, able to move all 4 limbs. LAB DATA: Done on January 12 reviewed. CONSIDERATION: 1. Atrial flutter/fibrillation. 2. Acute asthmatic bronchitis. 3. Seizure disorder. 4. Hyperlipidemia. Overall, the patient is doing better. We will continue current treatment and close observation. cc: Ethan Salinas MD
[2017-01-14 07:16] LABS: CALCIUM 11.1 mg/dL (8.8-10.2); MAGNESIUM 1.9 mg/dL (1.5-2.7); POTASSIUM 4.3 mmol/L (3.5-5.1)
[2017-01-14] MEDS: SYMBICORT 160/4.5 MICROGM INHALER INH SCH ×2 (07:45→19:57)
[2017-01-14] MEDS: TOPROL XL PO SCH ×2 (08:11→20:24)
[2017-01-14] MEDS: LAMICTAL PO SCH (08:11)
[2017-01-14] MEDS ORDERED: SODIUM CHLORIDE 0.9% 20 ML ONE (12:39)
[2017-01-14] MEDS ORDERED: XYLOCAINE 4% TOPICAL SOLUTION ONE (12:39)
[2017-01-14] MEDS ORDERED: XYLOCAINE 2% VISCOUS ONE (12:39)
[2017-01-14] MEDS ORDERED: DIPRIVAN 1% ONE (12:47)
[2017-01-14] MEDS ORDERED: ANESTHESIA PB SET 88 IN 5742 ONE (13:06)
[2017-01-14] MEDS ORDERED: NS 1,000 ML ONE (13:06)
[2017-01-14] MEDS ORDERED: CLAVE TWINSITE 32 IN 11959 ONE (13:06)
[2017-01-14] MEDS ORDERED: ASPIRIN PO SCH (14:31)
--- NOTE | 2017-01-14 15:14 | PROGRESS NOTE ---
DATE: 01/14/2017 SUMMARY: After conscious sedation per Anesthesiology with Diprivan, transesophageal echocardiography was performed without incident. Brief summary of findings include normal left ventricular dimensions and systolic function, biatrial enlargement, normal right ventricular size and systolic function, [id number] thickening of mitral valve leaflets with moderate mitral regurgitation, normal aortic valve, mild tricuspid regurgitation, and mild pulmonic insufficiency. All 4 cardiac chambers and left atrial appendage evaluated for thrombus. There appears to be a thrombus in the left atrial appendage. No other intracardiac thrombus noted. Interatrial septum appears intact without evidence of interatrial shunting. There is no pericardial effusion. CONCLUSIONS: Transesophageal echocardiography remarkable for left atrial appendage thrombus. Cardioversion not pursued. cc: MD Ethan Gillette MD
[2017-01-14] MEDS: WELLBUTRIN SR PO SCH (15:43)
[2017-01-14] MEDS: TYLENOL PO PRN (15:43)
[2017-01-14] MEDS: ASPIRIN PO SCH (15:44)
[2017-01-14] MEDS: ZITHROMAX PO SCH (15:44)
[2017-01-14] MEDS: LOVAZA PO SCH ×2 (15:44→20:25)
[2017-01-14] MEDS: VITAMIN D PO SCH (15:44)
[2017-01-14] MEDS: TRICOR PO SCH (15:44)
[2017-01-14] MEDS: LASIX IV SCH (15:45)
[2017-01-14] MEDS: ROCEPHIN 1 GM/NS 1 GM/50 ML IVPB IV SCH (15:45)
[2017-01-14] MEDS: XARELTO PO SCH (17:26)
[2017-01-14] MEDS: PAXIL PO SCH (20:24)
[2017-01-14] MEDS: LIPITOR PO SCH (20:24)
[2017-01-15] MEDS: XOPENEX NEB INH SCH ×4 (02:55→22:03)
[2017-01-15] MEDS: PRILOSEC PO SCH (06:07)
[2017-01-15] MEDS: MILK OF MAGNESIA PO PRN (06:07)
[2017-01-15 06:32] LABS: MANUAL DIFF NEEDED? NO
[2017-01-15 06:35] LABS: BASO% 0.4 % (0.0-0.8); EOS# 0.26 X1000 (0.0-0.7); EOS% 5.4 % (0.0-10.0); HEMATOCRIT 37.4 % (37.0-47.0); HEMOGLOBIN 12.9 g/dL (12.0-16.0); LYMPH# 2.35 X1000 (1.2-3.4); LYMPH% 48.6 % (20.5-51.1); MCH 33.5 PG (27-31); MCHC 34.5 g/dL (33-37); MCV 97.1 FL (81-99); MONO# 0.37 X1000 (0.11-0.59); MONO% 7.6 % (1.7-9.3); MPV 10.8 FL (7.4-10.4); PLT 195 X1000 (130-400); RBC 3.85 XMIL (4.2-5.4)
[2017-01-15] MEDS ORDERED: LINZESS PO ONE (06:48)
[2017-01-15 06:53] LABS: CALCIUM 10.8 mg/dL (8.8-10.2); POTASSIUM 5.1 mmol/L (3.5-5.1)
--- NOTE | 2017-01-15 07:46 | Diag Imaging Result Doc PS360 ---
CHEST-2 VIEWS - 01/15/2017 INDICATION: hypoxia TECHNIQUE: COMPARISON: 01/12/2017 FINDINGS: Stable CABG changes. Heart size and pulmonary vascularity remains top normal. No focal infiltrates, pneumothorax, or pleural effusion. IMPRESSION: Negative exam. Electronically signed by Robbin Quintero 01/15/2017 7:43 AM
[2017-01-15] MEDS ORDERED: TOPROL XL PO SCH (09:00)
[2017-01-15] MEDS: LASIX PO SCH (09:32)
[2017-01-15] MEDS: VITAMIN D PO SCH (09:33)
[2017-01-15] MEDS: TRICOR PO SCH (09:33)
[2017-01-15] MEDS: WELLBUTRIN SR PO SCH (09:33)
[2017-01-15] MEDS: PAXIL PO SCH (09:33)
[2017-01-15] MEDS: TOPROL XL PO SCH ×2 (09:33→21:20)
[2017-01-15] MEDS: ASPIRIN PO SCH (09:33)
[2017-01-15] MEDS: LOVAZA PO SCH ×2 (09:33→21:20)
[2017-01-15] MEDS: LAMICTAL PO SCH (09:33)
--- NOTE | 2017-01-15 10:04 | PROGRESS NOTE ---
DATE: 01/15/2017 The patient is doing fair. The patient claims she has significant cough yesterday and last night, not able to sleep well. Productive of scanty sputum. Some wheezing, no high-grade fever. Complaining of being constipated. No nausea or vomiting. Some chest wall pain. The patient had a PAT done yesterday. The patient had some blood clot in the atrium and they cannot do cardioversion. The patient was started on Xarelto. PHYSICAL EXAMINATION: Vital Signs: Reviewed. Heart rate is still elevated. I am going to increase her beta [place]. Her vital signs are noted. Lungs: Bilateral good air entry present. Occasional wheezing. CVS: S1 and S2 heard. Abdomen: Soft, globular. Bowel sounds present. Extremities: No cyanosis, clubbing. No acute DVT. SURVEILLANCE DUAL RATE OFFICER: Alert, awake able to move all 4 limbs. CONSIDERATION: Acute asthmatic bronchitis, pulmonary edema, constipation, atrial fibrillation and flutter, seizure disorder. I am going to get chest x-ray. Check proBNP. Increase beta [place]. Change her Lasix to p.o. I am going to watch patient today. cc: Ethan Salinas MD
[2017-01-15] MEDS: SYMBICORT 160/4.5 MICROGM INHALER INH SCH ×2 (10:15→19:57)
[2017-01-15] MEDS: ROCEPHIN 1 GM/NS 1 GM/50 ML IVPB IV SCH (15:10)
[2017-01-15] MEDS: XARELTO PO SCH (18:03)
[2017-01-15] MEDS: LIPITOR PO SCH (21:20)
[2017-01-15] MEDS: ROBITUSSIN-DM PO PRN (23:39)
[2017-01-16] MEDS: XOPENEX NEB INH SCH ×2 (03:37→09:27)
[2017-01-16] MEDS: PRILOSEC PO SCH (06:12)
--- NOTE | 2017-01-16 07:44 | PROGRESS NOTE ---
DATE: 01/16/2017 SUBJECTIVE: Ms. Dial is doing better. The patient claims she had a good day yesterday and she rested well. Cough and chest congestion is better. No nausea, vomiting. No fever or chills. OBJECTIVE: Vital Signs: Stable. Lungs: Bilateral good air entry present. CVS: S1 and S2 heard. Abdomen: Soft, globular. Bowel sounds present. BAKERY DELIVERER: Alert, awake. Able to move all 4 limbs. No acute DVT. Tolerating anticoagulation well. CONSIDERATION: 1. Patient admitted with acute asthmatic bronchitis. Clinically doing better. She received enough antibiotics. Her lab done yesterday, white count was normal. 2. Pulmonary edema and uncompensated congestive heart failure. 3. Atrial flutter/fibrillation. 4. The patient had thrombus in the left atrium, on anticoagulation. 5. Osteoarthritis. 6. Hypercalcemia. 7. Seizure disorder. 8. Gastritis and reflux disease. PLAN: I discussed at length about her medication. Will discharge her home today. The patient feels comfortable. Monitor blood pressure and heart rate at home. Follow up with me Saturday or Saturday. In case of more distress, call us back or go to the emergency room. Overall discharge condition satisfactory. cc: Ethan Salinas MD
[2017-01-16 08:35] VITALS: BP 120/68
[2017-01-16] MEDS: ASPIRIN PO SCH (09:13)
[2017-01-16] MEDS: LAMICTAL PO SCH (09:13)
[2017-01-16] MEDS: LASIX PO SCH (09:14)
[2017-01-16] MEDS: TRICOR PO SCH (09:14)
[2017-01-16] MEDS: TOPROL XL PO SCH (09:14)
[2017-01-16] MEDS: PAXIL PO SCH (09:14)
[2017-01-16] MEDS: VITAMIN D PO SCH (09:14)
[2017-01-16] MEDS: WELLBUTRIN SR PO SCH (09:14)
[2017-01-16] MEDS: LOVAZA PO SCH (09:15)
[2017-01-16] MEDS: SYMBICORT 160/4.5 MICROGM INHALER INH SCH (09:27)
--- NOTE | 2017-01-18 16:45 | DISCHARGE SUMMARY ---
ADMISSION DATE: 01/10/2017 DISCHARGE DATE: 01/16/2017 FINAL DISCHARGE DIAGNOSES: 1. Acute asthmatic bronchitis not responding to outpatient treatment. 2. Atrial fibrillation with rapid ventricular response. 3. Blood clot in the left atrial appendage. 4. Seizure disorder. 5. Hypertension. 6. Gastritis and reflux disease. 7. Osteoarthritis. 8. Hypercalcemia. 9. History of pulmonary edema. 10. Congestive heart failure due to diastolic dysfunction. HOSPITAL COURSE: Ms. Dial is a 81-year-old, white female patient admitted with chest congestion, cough, shortness of breath not responding to outpatient treatment. The patient also had some wheezing. I evaluated patient in the office and admitted her for further care. The patient was admitted and started on IV antibiotics, pulmonary toilet, bronchodilator treatment. Her telemetry did reveal atrial flutter, fibrillation. Cardiology consultation was obtained. Plan was to control the rate. The patient was started on Lovenox. Associate Publisher was planning to do cardioversion. She did have a blood clot in the left atrial appendage on transesophageal echocardiogram and they decided not to do cardioversion. The patient was started on Xarelto. Risks and benefits of anticoagulation discussed with the patient. The patient understood and agreed. We increased her beta-[place]. Overall the patient was doing better, her clinical condition stabilized and improved, and we decided to discharge patient home. We advised her to have followup with me early next week. The patient was given diuretics. We are going to check her blood work. Fall precautions. LABORATORY DATA: Revealed hemoglobin 12.9, hematocrit 37.4. WBC count 4.84, platelet count was 195,000. Blood gas on admission: pH 7.43, pCO2 38, PO2 was 68. Electrolytes: Sodium 141, potassium 5.1, chloride 99, CO2 was 32, BUN 31, creatinine was 1, calcium 10.8. proBNP 858, admission proBNP was 2887. TSH 1.72. Urinalysis did reveal 20-40 RBCs, 2+ bacteria. Urine culture was no growth. Sputum was normal shira. Her chest x-ray revealed pulmonary congestion and questionable pulmonary edema and right pleural effusion. CONDITION AT DISCHARGE: Overall patient received maximum benefit of hospitalization. Overall discharge condition satisfactory. Discharge plan discussed at length with the patient. cc: Ethan Salinas MD
--- NOTE | 2017-01-18 20:56 | ECHO REPORT ---
ORDER DATE: 01/14/2017 SUMMARY: After intravenous sedation with Diprivan per anesthesiology, I advanced transesophageal echocardiography probe via the patient's oropharynx to the esophagus without difficulty. Transesophageal echocardiography was performed without incident and demonstrated: 1. Aortic valve is trileaflet and opens normally on 2-dimensional images. There is very mild thickening of anterior mitral leaflet and posterior mitral leaflet with some sclerosis of the anterior mitral leaflet tip. Mitral valve opening appears adequate. There is mild to moderate mitral regurgitation. Tricuspid valve is without structural abnormality with very mild tricuspid regurgitation. Pulmonic valve without structural abnormality. The aortic root is normal size. 2. Normal left ventricular dimensions suggested. Estimated left ejection fraction appears to be greater than 55%. No regional wall motion abnormalities evident. Left atrium and right atrium are mildly enlarged. Right ventricle is normal in size with normal right ventricular systolic function. 3. All 4 cardiac chambers appear free of intracardiac thrombus with exception of small thrombus appears to be present in left atrial appendage measuring 0.7 x 0.8 cm. Remainder of the heart is free of intracardiac thrombus. 4. Interatrial septum appears intact without evidence on color Doppler of interatrial shunting. Intravenous agitated saline contrast study performed reveals no evidence of [id number] intracardiac shunting. 5. No pericardial effusion. 6. Descending thoracic aorta appears free of atherosclerotic plaque. cc: MD Rafa Gillette MD Bharat K. Vakharia, MD
== END 2017-01-16 13:37 | disposition home or self-care (01) ==
LOC: DIRADM 13:26 → 3N 13:54
PROVIDERS: ADMIT Internal Medicine; ATTEND Internal Medicine